=== PATIENT | female | born 1980 | race Caucasian/White ===

== ENCOUNTER 2024-05-07 20:55 | Inpatient (IN) ==
--- NOTE | 2024-05-07 21:16 | Emergency Department Note ---
Impression & Plan Acute right flank pain, Renal colic, Nausea, Hydronephrosis ED Provider Note NAME: WAQAR BENITEZ AGE: 44 SEX: F : 1980 ARRIVES VIA: Walk-In INFORMANT: [Patient] ED PROVIDER(S): [Toribio Cm MD] CHIEF COMPLAINT: Back pain HISTORY OF PRESENT ILLNESS: The patient is a 44-year-old female who has had intermittent right flank pain for 3 weeks that worsened in the last 24 hours. The pain became quite intense this evening to the point where she was nauseated and could not get comfortable. The pain does radiate from the right flank to the right lower quadrant. She has not had a lot of urine out today. No burning with urination. No fever. No cough or congestion. No trauma. Patient believes she likely has a kidney stone as she has felt similar with previous stones. Of note, the patient did try Advil before arrival, this really did not help. PMHx/PSHx/Social Hx: See Below PHYSICAL EXAM: GENERAL: Patient is in mild distress from pain. HEENT: No acute trauma, normocephalic atraumatic, mucous membranes moist, no nasal congestion. Cheeks are flushed. NECK: No stridor, no adenopathy, no meningismus, trachea is midline. LUNGS: Clear to auscultation bilaterally, no wheeze, no rhonchi, breath sounds equal. HEART: Without murmurs gallops or rubs, regular rate and rhythm. ABDOMEN: Soft, nontender, no peritonitis. EXTREMITIES: No cyanosis, full range of motion of all the joints without pain or difficulty. NEUROLOGIC: Oriented x 3, no acute motor or sensory deficits, no focal weakness. SKIN: No jaundice, no diaphoresis. Back: Mild right flank discomfort with percussion. DIFFERENTIAL DIAGNOSIS: Renal colic, biliary colic, hydronephrosis, pyelonephritis, renal failure, appendicitis, among others. EMERGENCY DEPARTMENT PROCEDURES: MEDICAL DECISION MAKING: There is no leukocytosis or concerning anemia. There is a normal platelet count. No renal failure or significant electrolyte abnormality. No concerning liver enzyme elevation. No evidence for pancreatitis. testing is negative. Urinalysis shows some hematuria, no obvious infection. Abdominal and pelvis CT shows a right proximal ureteral stone with hydronephrosis. On exam, the patient was uncomfortable in the area of the right flank. She was not febrile. Patient was given IV morphine, IV Zofran, IV saline. She was given IV Toradol and IV Tylenol. She received oral Flomax. She was given a urine strainer. The patient does feel improved but is still having discomfort. She has, in the past, required urologic intervention even for smaller stones, she is concerned and is afraid to try to pass this stone outpatient. Given her concerns, given her past history and findings today, given her ongoing pain, hospitalization is indicated. I spoke with the patient and case management. The on-call hospitalist was consulted. Prior/Outside records/notes reviewed: None Imaging/x-ray results per my interpretation: Chronic Medical/Social conditions affecting care: None Care/Management discussed with: Case management, the on-call hospitalist. Level of care consideration(s): After review of the information above and other included data: --I believe the patient requires escalation of care to admission DISPOSITION: Admission Past Med/Surg History Problem List (Updated 05/07/24 @ 23:02 by Toribio Cm MD) Hydronephrosis (Acute) Nausea (Acute) Renal colic (Acute) Acute right flank pain (Acute) S/P panniculectomy (~12/2019) Dr. 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 Family History Father Family history of diabetes mellitus Mother Family hx of colon cancer Other No family history of adverse response to anesthesia Social History Smoking Status: Never smoker Second Hand Exposure: No; Do You Dip or Chew Tobacco: No; Hx Alcohol Use: No Hx Substance Use: No Preferred Language: Luxembourgish [employer] Required: No Beliefs That Will Affect Care: None Current Living Situation: Family Feels Safe at Home: Yes Sunscreen Use: Yes Assistive Devices: Contacts and Glasses Allergies Allergies Allergy/AdvReac Type Severity Reaction Status Date / Time bacitracin Allergy Intermediate Hives Verified 05/07/24 21:20 [From Neosporin ([id number])] neomycin Allergy Intermediate Hives Verified 05/07/24 21:20 [From Neosporin ([id number])] polymyxin B Allergy Intermediate Hives Verified 05/07/24 21:20 [From Neosporin ([id number])] Home Meds Home Medications Medication Instructions Recorded Confirmed betamethasone, augmented 0.05 % 1 applic topical BID PRN 05/07/24 05/07/24 topical cream DIRECTED Results & Data (ED) Vital Signs Vital Signs - 24 hr 05/07/24 20:57 05/07/24 21:07 05/07/24 21:36 Temperature 36.8 C Temperature Source Oral Pulse Rate 73 78 63 Pulse Rate from SpO2 Sensor 62 Respiratory Rate 18 18 Respiratory Effort / Characteristics Non-Labored Spontaneous Respiratory Depth Normal Blood Pressure 140/73 Blood Pressure Mean 95 Pulse Oximetry 100 96 Oxygen Delivery Method Room Air Room Air Sepsis Recent Fever Within 48 Hours No Sepsis New/Unexplained Change in Mental Status N/A Sepsis Action Taken by Nursing No Action Required 05/07/24 22:03 05/07/24 22:30 Temperature Temperature Source Pulse Rate 61 53 L Pulse Rate from SpO2 Sensor 61 53 L Respiratory Rate 23 19 Respiratory Effort / Characteristics Respiratory Depth Blood Pressure 111/55 L Blood Pressure Mean 73 Pulse Oximetry 94 96 Oxygen Delivery Method Room Air Room Air Sepsis Recent Fever Within 48 Hours Sepsis New/Unexplained Change in Mental Status Sepsis Action Taken by Longterm Medications Current Medication List: was personally reviewed by me Laboratory Data Attestation: I reviewed the patient's lab results. 05/07/24 Unknown 05/07/24 Unknown Lab Results 05/07/24 05/07/24 Range/Units 22:14 Unknown WBC 9.12 (4.8-10.8) K/ul RBC 4.20 (4.20-5.40) M/uL Hgb 12.6 (12.0-16.0) g/dl Hct 38.1 (37.0-47.0) % MCV 90.7 (80.0-100.0) fL MCH 30.0 (25.0-34.0) pg MCHC 33.1 (32.0-36.0) g/dL RDW Std Deviation 44.8 (36.4-46.3) fL RDW Coeff of Diya 13.5 (11.5-14.5) % Plt Count 343 (130-400) K/uL MPV 10.2 (9.4-12.4) fL Immature Gran % (Auto) 0.3 % Neut % (Auto) 67.7 % Lymph % (Auto) 22.5 % [place] % (Auto) 7.0 % Eos % (Auto) 2.1 % Baso % (Auto) 0.4 % Neut # (Auto) 6.17 (1.40-6.50) K/uL Lymph # (Auto) 2.05 (1.20-3.40) K/uL [place] # (Auto) 0.64 H (0.11-0.59) K/uL Eos # (Auto) 0.19 (0.00-0.50) K/uL Baso # (Auto) 0.04 (0.00-0.20) K/uL Immature Gran # (Auto) 0.03 (0.01-0.20) K/uL Sodium 139 (136-145) mmol/L Potassium 3.7 (3.5-5.1) mmol/L Chloride 111 H (98-107) mmol/L Carbon Dioxide 25 (21-32) mmol/L Anion Gap 3 (3-11) BUN 14 (6-23) mg/dl Creatinine 0.82 (0.6-1.2) mg/dl Est Cr Clr Drug Dosing 91.2 ml/min eGFR 89.28 BUN/Creatinine Ratio 17.1 (10-20) Glucose 113 H (70-99(Fasting)) mg/dl Calcium 8.9 (8.6-10.3) mg/dl Total Bilirubin 0.4 (0.2-1.0) mg/dl AST 12 L (13-39) U/L ALT 13 (7-52) U/L Alkaline Phosphatase 69 (34-104) U/L Total Protein 6.6 (6.0-8.3) gm/dl Albumin 4.1 (3.4-5.0) gm/dl Globulin 2.5 (2.5-4.0) gm/dl Albumin/Globulin Ratio 1.6 (0.9-2) Lipase 56 (11-82) U/L HCG, Qual Negative (Negative) Urine Color Yellow Urine Appearance Clear (Clear) Urine pH 6.5 (4.5-7.5) Ur Specific [place] 1.024 (1.000-1.030) Urine Protein Negative (Negative) Urine Glucose (UA) Negative (Negative) Urine Ketones Trace H (Negative) Urine Blood Trace H (Negative) Urine Nitrite Negative (Negative) Urine Bilirubin Negative (Negative) Urine Urobilinogen Negative (Negative) Ur Leukocyte Esterase 1+ H (Negative) Urine WBC (Auto) 6-10 H (0-5) /hpf Urine RBC (Auto) 3-5 H (0-2) /hpf U Hyaline Cast (Auto) 0-2 (0-2) /lpf U Epithel Cells (Auto) 3-5 H (0-2) /hpf Urine Bacteria (Auto) 1+ H (None Seen) Administered Medications Discontinued Medications Sodium Chloride (Nss) 1,000 mls @ 999 mls/hr IV .Q1H1M ONE Stop: 05/07/24 22:12 Last Infusion: 05/07/24 22:21 Dose: Infused Documented By: Admin: 05/07/24 21:18 Dose: 999 mls/hr Documented By: TAVO Acetaminophen (Ofirmev) 1,000 mg in 100 mls @ 400 mls/hr IV NOW STA Stop: 05/07/24 21:26 Last Infusion: 05/07/24 21:36 Dose: Infused Documented By: Admin: 05/07/24 21:18 Dose: 400 mls/hr Documented By: TAVO Ketorolac Tromethamine (Ketorolac Tromethamine 15 Mg/Ml Vial) 10 mg IV NOW ONE Stop: 05/07/24 21:13 Last Admin: 05/07/24 21:18 Dose: 10 mg Documented By: TAVO Morphine Sulfate (Morphine Sulfate 4 Mg/Ml 1 Ml Carp\\Vial) 4 mg IV NOW STA Stop: 05/07/24 21:13 Last Admin: 05/07/24 21:19 Dose: 4 mg Documented By: TAVO Ondansetron HCl (Ondansetron Inj 2 Mg/Ml 2 Ml Vial) 4 mg IV NOW STA Stop: 05/07/24 21:13 Last Admin: 05/07/24 21:19 Dose: 4 mg Documented By: TAVO Tamsulosin HCl (Tamsulosin Hcl 0.4 Mg Cap) 0.4 mg PO NOW ONE Stop: 05/07/24 22:02 Last Admin: 05/07/24 22:08 Dose: 0.4 mg Documented By: TAVO Imaging Data Radiologist's Impression: Abdomen/Pelvis CT 05/07/24 21:13 Exam(s): CT ABDOMEN + PELVIS Without Contrast EXAM: CT Abdomen and Pelvis Without Intravenous Contrast CLINICAL HISTORY: Reason for exam: right flank pain. TECHNIQUE: Axial computed tomography images of the abdomen and pelvis without intravenous contrast. CTDI is 27.64 mGy and DLP is 1245.66 mGy-cm. Automated exposure control was utilized for the study. A dose lowering technique was utilized adhering to the principles of ALARA. COMPARISON: No relevant prior studies available. FINDINGS: Lung bases: Unremarkable. ABDOMEN: Liver: Unremarkable. Gallbladder and bile ducts: Contracted gallbladder. No calcified stones. No ductal dilation. Pancreas: Unremarkable. No ductal dilation. Spleen: Calcified splenic granulomata. Adrenals: Unremarkable. No mass. Kidneys and ureters: Punctate nonobstructing left kidney stones. No left-sided hydronephrosis. Obstructing 5 mm proximal right ureter stone at the L3 level causing mild upstream hydroureteronephrosis. Stomach and bowel: Unremarkable. No obstruction. No mucosal thickening. PELVIS: Appendix: No evidence of appendicitis. Bladder: Unremarkable. No stones. Reproductive: Unremarkable as visualized. ABDOMEN and PELVIS: Intraperitoneal space: Unremarkable. No free fluid or free air. Bones/joints: No acute fracture. No dislocation. Soft tissues: Unremarkable. Vasculature: Mild atherosclerosis. No abdominal aortic aneurysm. Lymph nodes: Unremarkable. No enlarged lymph nodes. IMPRESSION: Obstructing 5 mm proximal right ureter stone at the L3 level causing mild upstream hydroureteronephrosis. Electronically signed by: Mari Kemp M.D. 05/07/24 22:32 PM Discharge Plan Visit Data Chief Complaint: Back Injury/Pain Stated Complaint: NAUSEA, ABD PAIN ED Provider: Toribio Cm Discharge Problem: Acute right flank pain, Renal colic, Nausea, Hydronephrosis Patient Disposition: Admitted As Inpatient Condition: Fair Forms Stand Alone Forms: [facility] Prescriptions Prescriptions: No Action betamethasone, augmented 0.05 % cream 1 applic TOPICAL BID PRN (Reason: DIRECTED) Referrals Referrals: Dereck rGove [Outside Practitioners] - Discharge Problem: Hydronephrosis Qualifiers: Hydronephrosis type: with renal calculous obstruction Qualified Code(s): N13.2 - Hydronephrosis with renal and ureteral calculous obstruction
[2024-05-07] MEDS: KETOROLAC TROMETHAMINE 15 MG/ML VIAL IV ONE (21:18)
[2024-05-07] MEDS: ACETAMINOPHEN 1,000 MG/100 ML VIAL IV STA (21:18)
[2024-05-07] MEDS: SODIUM CHLORIDE 0.9% 1,000 ML IV ONE (21:18)
[2024-05-07] MEDS: ONDANSETRON INJ 2 MG/ML 2 ML VIAL IV STA (21:19)
[2024-05-07] MEDS: MoRPHine SULFATE 4 MG/ML 1 ML CARP\\VIAL IV STA (21:19)
[2024-05-07 21:42] LABS: Pregnancy Test, Serum Negative (Negative)
[2024-05-07 21:46] LABS: Albumin Globulin Ratio 1.6 (0.9-2); Albumin Level 4.1 gm/dl (3.4-5.0); BUN Creatinine Ratio 17.1 (10-20); Bilirubin,Total 0.4 mg/dl (0.2-1.0); Calcium 8.9 mg/dl (8.6-10.3); Creatinine Clr Calc Pharmacy 91.2 ml/min; Globulin 2.5 gm/dl (2.5-4.0); Potassium 3.7 mmol/L (3.5-5.1); Total Protein 6.6 gm/dl (6.0-8.3)
[2024-05-07] MEDS: TAMSULOSIN HCL 0.4 MG CAP PO ONE (22:08)
[2024-05-07 22:13] LABS: Basophils # (auto) 0.04 K/uL (0.00-0.20); Basophils % (auto) 0.4 %; Eosinophils # (auto) 0.19 K/uL (0.00-0.50); Eosinophils % (auto) 2.1 %; Hematocrit (blood only) 38.1 % (37.0-47.0); Hemoglobin 12.6 g/dl (12.0-16.0); Immature Granulocytes # (auto) 0.03 K/uL (0.01-0.20); Immature Granulocytes % (auto) 0.3 %; Lymphocytes # (auto) 2.05 K/uL (1.20-3.40); Lymphocytes % (auto) 22.5 %; Mean Corpuscular Hgb Conc 33.1 g/dL (32.0-36.0); Mean Corpuscular Volume 90.7 fL (80.0-100.0); Mean Platelet Volume 10.2 fL (9.4-12.4); Monocytes # (auto) 0.64 K/uL (0.11-0.59); Neutrophils # (auto) 6.17 K/uL (1.40-6.50); Neutrophils % (auto) 67.7 %; Platelet Count 343 K/uL (130-400); RDW Coefficient of Variation 13.5 % (11.5-14.5); RDW Standard Deviation 44.8 fL (36.4-46.3); White Blood Count 9.12 K/ul (4.8-10.8)
--- NOTE | 2024-05-07 22:33 | CT Scan Report ---
Exam(s): CT ABDOMEN + PELVIS Without Contrast EXAM: CT Abdomen and Pelvis Without Intravenous Contrast CLINICAL HISTORY: Reason for exam: right flank pain. TECHNIQUE: Axial computed tomography images of the abdomen and pelvis without intravenous contrast. CTDI is 27.64 mGy and DLP is 1245.66 mGy-cm. Automated exposure control was utilized for the study. A dose lowering technique was utilized adhering to the principles of ALARA. COMPARISON: No relevant prior studies available. FINDINGS: Lung bases: Unremarkable. ABDOMEN: Liver: Unremarkable. Gallbladder and bile ducts: Contracted gallbladder. No calcified stones. No ductal dilation. Pancreas: Unremarkable. No ductal dilation. Spleen: Calcified splenic granulomata. Adrenals: Unremarkable. No mass. Kidneys and ureters: Punctate nonobstructing left kidney stones. No left-sided hydronephrosis. Obstructing 5 mm proximal right ureter stone at the L3 level causing mild upstream hydroureteronephrosis. Stomach and bowel: Unremarkable. No obstruction. No mucosal thickening. PELVIS: Appendix: No evidence of appendicitis. Bladder: Unremarkable. No stones. Reproductive: Unremarkable as visualized. ABDOMEN and PELVIS: Intraperitoneal space: Unremarkable. No free fluid or free air. Bones/joints: No acute fracture. No dislocation. Soft tissues: Unremarkable. Vasculature: Mild atherosclerosis. No abdominal aortic aneurysm. Lymph nodes: Unremarkable. No enlarged lymph nodes. IMPRESSION: Obstructing 5 mm proximal right ureter stone at the L3 level causing mild upstream hydroureteronephrosis. Electronically signed by: Mari Kemp M.D. 05/07/24 22:32 PM
[2024-05-07 22:37] LABS: Appearance Urine Clear (Clear); Bacteria Urine Automated 1+ (None Seen); Bilirubin Urine Negative (Negative); Blood Urine Trace (Negative); Cast Urine Automated 0-2 /lpf (0-2); Color Urine Yellow; Glucose Urine UA Negative (Negative); Ketones Urine Trace (Negative); Leukocyte Esterase Urine 1+ (Negative); Nitrite Urine Negative (Negative); Protein Urine Negative (Negative); Specific Gravity Urine 1.024 (1.000-1.030); Urobilinogen Urine Negative (Negative); pH Urine 6.5 (4.5-7.5)
--- NOTE | 2024-05-07 23:09 | History & Physical Report ---
Date of Service May 07, 2024 Assessment & Plan (1) Right nephrolithiasis: (2) Urinary tract infection: (3) Nausea: Plan Patient is a 44-year-old female with no significant past medical history other than kidney stones requiring a left stent placement in the past. She presented to the ED due to flank pain x 3 weeks that has been worsening for the past 24 hours. Along with decreased urine production. She is being admitted for a right proximal ureter obstructing 5 mm stone that appears infectious. #right nephrolithiasis/UTI history of kidney stones requiring left stent placement in the past UA with 1+ leukocyte esterase, 6-10 WBC, 1+ bacteria, 3-5 epithelial cells - possible contaminant with epithelial cells however given obstructed stone, cover with ABX CT showed obstructing 5 mm proximal right ureter stone at L3 level causing mild upstream hydroureteronephrosis renal function stable - trend BMP to monitor nonseptic - no leukocytosis, VSS, afebrile - trend CBC to monitor pain control with IV Tylenol scheduled, Toradol prn, and morphine 2mg/4mg IV for breakthrough pain tamsulosin 0.4 mg PO given in ED, Defer further use as likely operative management and n.p.o. status Zofran as needed for nausea will cover with Rocephin given UA appears infectious and obstructed stone follow urine cultures NPO consult urology mildly hypotensive on admission (111/55) - given 1L NSS in ED, IVF resuscitation overnight with NSS at 80 mL/hour VTE ppx: SCDs, low risk and anticipate operative management Diet: n.p.o. Dispo: MedSurg Admission and Anticipated Discharge Date Admission Date: 05/07/24 History of Present Illness Chief Complaint: back pain Primary Care Provider: TAWANNA Kline Patient is a 44-year-old female with no significant past medical history other than kidney stones requiring a left stent placement in the past. She presented to the ED due to flank pain x 3 weeks that has been worsening for the past 24 hours. Along with decreased urine production. She is being admitted for a right proximal ureter obstructing 5 mm stone that appears infectious. Patient seen at bedside. She stated her pain is currently 5/10 after receiving Toradol, Tylenol, and morphine 4 Mg IV in the ED. She stated her pain is in her right flank and radiates to her right abdomen and down her right leg. She also endorses decrease in urinary frequency for the past 24 hours, denies any gross hematuria. She also has nausea that is well-controlled with Zofran in the ED. She had numerous kidney stones in the past and required stent placement of the left kidney due to a 2 and 3 mm stone several years ago. She denies any fevers, chills, chest pain, shortness of breath, vomiting, diarrhea. She does not use nicotine products or drink alcohol. Her only home medications consist of vitamin D and vitamin B. She wishes to be full code. she denies any allergies to antibiotics. Allergies Allergy/AdvReac Type Severity Reaction Status Date / Time bacitracin Allergy Intermediate Hives Verified 05/07/24 21:20 [From Neosporin ([id number])] neomycin Allergy Intermediate Hives Verified 05/07/24 21:20 [From Neosporin ([id number])] polymyxin B Allergy Intermediate Hives Verified 05/07/24 21:20 [From Neosporin ([id number])] Home Medications Medication Instructions Recorded Confirmed Type betamethasone, augmented 0.05 % 1 applic topical BID PRN 05/07/24 05/07/24 History topical cream DIRECTED Past Med/Surg History Problem List (Updated 05/07/24 @ 23:42 by Lorin El PA-C) Urinary tract infection Right nephrolithiasis Hydronephrosis (Acute) Nausea (Acute) Renal colic (Acute) Acute right flank pain (Acute) S/P panniculectomy (~12/2019) Dr. 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 Family History Father Family history of diabetes mellitus Mother Family hx of colon cancer Other No family history of adverse response to anesthesia Social History Smoking Status: Never smoker Second Hand Exposure: No; Do You Dip or Chew Tobacco: No; Hx Alcohol Use: No Hx Substance Use: No Preferred Language: Telugu Communication Ability: Effective Nurse Practitioner Hospitalist Required: No Beliefs That Will Affect Care: None Current Living Situation: Spouse and Family Other Information That Helps Us Care for You: No Feels Safe at Home: Yes Safety Concerns: Feels Safe At This Time Sunscreen Use: Yes Assistive Devices: Contacts Review of Systems Review of Systems: see HPI Physical Exam Physical Exam: The patient is awake, alert and oriented 3, well developed and well nourished, normocephalic and atraumatic, in no acute distress. Non-toxic appearing. HEENT- EOMI, mucous membranes moist. Hearing grossly intact. Heart-normal S1 and S2. No murmurs, rubs or gallops. Lungs-clear bilaterally, no respiratory distress, no accessory muscle use. Abdomen-normal bowel sounds and soft. No ascites noted. Non-tender. Extremities- no clubbing, cyanosis, or edema. Rheumatologic-normal range of motion. Psychiatric-normal affect. Results & Data Results & Data Vital Signs (Past 12 Hours) Vital Signs Temp Pulse Resp BP Pulse Ox O2 Del Method 05/07/24 22:30 53 L 19 111/55 L 96 Room Air 05/07/24 22:03 61 23 94 Room Air 05/07/24 21:36 63 18 96 Room Air 05/07/24 21:07 78 05/07/24 20:57 36.8 C 73 18 140/73 100 Room Air Laboratory Results reviewed CBC, CMP, hCG, UA Diagnostic Findings reviewed AP CT Medications Administered ED1L NSS bolus, Zofran 4 Mg IV, Toradol 15 Mg IV, morphine 4 Mg IV, Tylenol 1G IV, Flomax 0.4 Mg p.o. AdmissionRocephin 2G IV, NSS at 80 mL/hour ECG Additional Comments: Ordered Code Status & VTE Plan Code Status full code VTE Prophylaxis Plan VTE Prophylaxis will be ordered: Yes Supervising Physician Co-Signing Physician Notes Attending addendum: I have physically seen this patient, have supervised the ZIA's activities, and agree with the H&P unless as otherwise noted. Assessment and Plan: The patient is a 44-year-old female with past medical history significant for kidney stones requiring left stent placement in the past. She presents to the emergency department due to flank pain of 3 weeks duration, worsening over the past 24 hours, along with decreased urine production. She underwent CT scan abdomen pelvis which shows a 5 mm proximal right ureteral stone with mild hydroureteronephrosis due to obstruction. #5 mm proximal right ureteral stone/mild right hydroureteronephrosis- N.p.o. Follow urine culture and sensitivity Ceftriaxone 2 g IV daily Tamsulosin 0.4 mg p.o. daily Zofran 4 mg IV every 6 hours as needed Acetaminophen 1 g IV every 8 hours as needed for mild pain or fever Toradol 10 mg IV every 6 hours as needed for moderate pain Morphine sulfate 2 to 4 mg IV every 3 hours as needed breakthrough pain Status post 1 L normal saline bolus in ED NSS at 80 mL/h x 1 additional liter overnight Consult urology PG Care Time/CCT Total # of Minutes Spent Total Time Spent with Patient: Total time spent is greater than 50% in coordination of care (as documented) at patient's floor/unit and/or counseling patient: Coding Level of Care Code 23649 INT INP/OBS CARE 375MIN Diagnoses Right nephrolithiasis N20.0 Urinary tract infection N39.0 Nausea R11.0
[2024-05-07] MEDS: LACTATED RINGER'S 1,000 ML IV SCH (23:34)
[2024-05-08] MEDS: cefTRIAXone SODIUM 2,000 MG/50 ML BAG IV STA (00:08)
[2024-05-08] MEDS: ONDANSETRON INJ 2 MG/ML 2 ML VIAL IV PRN ×2 (01:02→13:34)
[2024-05-08] MEDS: MoRPHine SULFATE 2 MG/ML CARP IV PRN (01:02)
[2024-05-08] MEDS: SODIUM CHLORIDE 0.9% 1,000 ML IV SCH (01:12)
[2024-05-08] MEDS: KETOROLAC TROMETHAMINE 15 MG/ML VIAL IV PRN (03:45)
[2024-05-08] MEDS: ACETAMINOPHEN 1,000 MG/100 ML VIAL IV SCH (05:03)
[2024-05-08 06:57] LABS: Basophils # (auto) 0.04 K/uL (0.00-0.20); Basophils % (auto) 0.7 %; Eosinophils % (auto) 3.5 %; Hematocrit (blood only) 33.2 % (37.0-47.0); Hemoglobin 10.7 g/dl (12.0-16.0); Immature Granulocytes # (auto) 0.01 K/uL (0.01-0.20); Immature Granulocytes % (auto) 0.2 %; Lymphocytes # (auto) 2.19 K/uL (1.20-3.40); Mean Corpuscular Hemoglobin 30.1 pg (25.0-34.0); Mean Corpuscular Hgb Conc 32.2 g/dL (32.0-36.0); Mean Corpuscular Volume 93.5 fL (80.0-100.0); Mean Platelet Volume 10.1 fL (9.4-12.4); Monocytes # (auto) 0.41 K/uL (0.11-0.59); Monocytes % (auto) 7.1 %; Neutrophils # (auto) 2.91 K/uL (1.40-6.50); Neutrophils % (auto) 50.5 %; Platelet Count 254 K/uL (130-400); RDW Coefficient of Variation 13.5 % (11.5-14.5); RDW Standard Deviation 46.3 fL (36.4-46.3); Red Blood Count 3.55 M/uL (4.20-5.40); White Blood Count 5.76 K/ul (4.8-10.8)
[2024-05-08] MEDS: MoRPHine SULFATE 4 MG/ML 1 ML CARP\\VIAL IV PRN (07:18)
[2024-05-08 07:24] LABS: BUN Creatinine Ratio 17.3 (10-20); Calcium 8.1 mg/dl (8.6-10.3); Creatinine Clr Calc Pharmacy 91.9 ml/min; Potassium 3.9 mmol/L (3.5-5.1)
[2024-05-08] MEDS: TAMSULOSIN HCL 0.4 MG CAP PO SCH (08:43)
--- NOTE | 2024-05-08 09:04 | Anesthesiology Consultation ---
Date of Service May 08, 2024 Assessment & Plan Chart Review Chart Review: Acceptable Risk for Surgery and Patient NOT seen in Pre Admission Testing Consults Requested none ASA [id number] Proposed Anesthesia Anesthesia Type: MAC History Surgery Operation Date: 05/08/24 12:00 Proposed Procedures p Cystoscopy - Dereck Hernandez MD s Ureteral Stent Insertion/Removal - Right - Dereck Hernandez MD Height/Weight Height: 5 ft 2 in Weight: 92.5 kg Allergies Allergy/AdvReac Type Severity Reaction Status Date / Time bacitracin Allergy Intermediate Hives Verified 05/07/24 21:20 [From Neosporin ([id number])] neomycin Allergy Intermediate Hives Verified 05/07/24 21:20 [From Neosporin ([id number])] polymyxin B Allergy Intermediate Hives Verified 05/07/24 21:20 [From Neosporin ([id number])] Medications Home Medications Medication Instructions Recorded Confirmed Last Taken betamethasone, augmented 0.05 % 1 applic topical BID PRN 05/07/24 05/07/24 Unknown topical cream DIRECTED Active Medications Generic Name Dose Route Start Last Admin Trade Name Freq PRN Reason Stop Dose Admin Sodium Chloride 1,000 mls @ 80 mls/hr 05/07/24 23:45 05/08/24 01:12 Nss IV 05/08/24 23:44 80 mls/hr .[id number] EVITA Administration Acetaminophen 1,000 mg in 100 mls @ 400 mls/hr 05/08/24 05:00 05/08/24 05:27 Ofirmev IV 05/11/24 04:59 Infused Q8H EVITA Infusion Ketorolac Tromethamine 10 mg 05/08/24 00:34 05/08/24 03:45 Ketorolac Tromethamine 15 Mg/Ml Vial IV 05/13/24 00:33 10 mg Q6H PRN Administration Pain Morphine Sulfate 2 mg 05/08/24 00:34 05/08/24 01:02 Morphine Sulfate 2 Mg/Ml Carp IV 05/22/24 00:33 2 mg Q6H PRN Administration Moderate Pain (Scale 4, 5, 6) Morphine Sulfate 4 mg 05/08/24 00:34 05/08/24 07:18 Morphine Sulfate 4 Mg/Ml 1 Ml Carp\\Vial IV 05/22/24 00:33 4 mg Q6H PRN Administration Severe Pain (Scale 7, 8, 9,10) Ondansetron HCl 4 mg 05/08/24 00:34 05/08/24 01:02 Ondansetron Inj 2 Mg/Ml 2 Ml Vial IV 06/07/24 00:33 4 mg Q6H PRN Administration Nausea And Vomiting Tamsulosin HCl 0.4 mg 05/08/24 09:00 05/08/24 08:43 Tamsulosin Hcl 0.4 Mg Cap PO 06/07/24 08:59 0.4 mg QAM EVITA Administration Past Medical History Medical History Scoliosis "MILD" Hx gestational diabetes obese hydronephrosis anemia ASCVD Ao mild Exercise / Class Metabolic Activity II 4-5 Yardwork/Stairs/Walk up hill Past Family History Family History Father Family history of diabetes mellitus Mother Family hx of colon cancer Other No family history of adverse response to anesthesia Past Surgical History Surgical History History of colonoscopy [place] teeth removed 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 Past Anesthesia History No Hx of Anesthesia Complications and No Family Hx of Anesthesia Complications History of PONV No Hx of PONV and No Hx of Motion Sickness Social History Smoking Status: Never smoker Do You Dip or Chew Tobacco: No Hx Alcohol Use: No Hx Substance Use: No substance use type: does not use Physical Exam Vital Signs Last Vital Signs Temp 36.5 C 05/08/24 07:40 Pulse 57 L 05/08/24 07:40 Resp 20 05/08/24 07:40 BP 97/60 L 05/08/24 07:40 Pulse Ox 96 05/08/24 07:40 O2 Del Method Room Air 05/08/24 07:40 Testing Laboratory Results 05/08/24 06:29 05/08/24 06:29 Urine Color Yellow 05/07/24 22:14 Urine Appearance Clear (Clear) 05/07/24 22:14 Urine pH 6.5 (4.5-7.5) 05/07/24 22:14 Ur Specific [place] 1.024 (1.000-1.030) 05/07/24 22:14 Urine Protein Negative (Negative) 05/07/24 22:14 Urine Glucose (UA) Negative (Negative) 05/07/24 22:14 Urine Ketones Trace (Negative) H 05/07/24 22:14 Urine Nitrite Negative (Negative) 05/07/24 22:14 Ur Leukocyte Esterase 1+ (Negative) H 05/07/24 22:14 Urine WBC (Auto) 6-10 /hpf (0-5) H 05/07/24 22:14 Urine RBC (Auto) 3-5 /hpf (0-2) H 05/07/24 22:14 U Hyaline Cast (Auto) 0-2 /lpf (0-2) 05/07/24 22:14 U Epithel Cells (Auto) 3-5 /hpf (0-2) H 05/07/24 22:14 Urine Bacteria (Auto) 1+ (None Seen) H 05/07/24 22:14 Electrocardiogram Date: 05/08/24 Findings: + SB @ (@ 51;lowvoltage QRS)
--- NOTE | 2024-05-08 09:06 | Urology Consultation ---
Date of Consultation May 08, 2024 Assessment & Plan (1) Right nephrolithiasis: (2) Urinary tract infection: Plan We reviewed her right ureteral stone as well as the possible superimposed infection. In this setting I would recommend cystoscopy, right retrograde pyelogram and right ureteral stent placement to ensure maximal drainage of the urinary tract. We discussed risks and benefits of this procedure including risk of bleeding, infection, inability to place stent, need for additional procedures. She expressed understanding and would like to proceed. History of Present Illness Reason for Consultation: Right ureteral stone, possible UTI Attending Physician: Miguel Angel Rose DO History of Present Illness This is a 44-year-old female with history of nephrolithiasis. She has had 1 in 2 mm stones in the past but has not been able to pass these spontaneously and has required surgical intervention. She presented to the emergency department on 05/07/2024 with right-sided flank pain. Workup in the ED demonstrated normal WBC (9.12). Creatinine was 0.82 and glucose was 113. Urinalysis demonstrated negative nitrites, 1+ leukocyte esterase, 1+ bacteria although epithelial cells were present on sample as well. She had a CT scan of the abdomen pelvis. I independently reviewed these images from 05/07/2024. Both kidneys are in normal position. There is hydronephrosis on the right side extending down to a 5 mm stone in the mid right ureter. There are punctate, nonobstructing stones in the left kidney. Bladder appears grossly normal. Urology was consulted regarding the obstructing stone and possible infection. At the bedside she denies any fevers or chills, although does report some bladder pressure and possible mild burning. She is still having right-sided flank pain. Allergies Allergy/AdvReac Type Severity Reaction Status Date / Time bacitracin Allergy Intermediate Hives Verified 05/07/24 21:20 [From Neosporin ([id number])] neomycin Allergy Intermediate Hives Verified 05/07/24 21:20 [From Neosporin ([id number])] polymyxin B Allergy Intermediate Hives Verified 05/07/24 21:20 [From Neosporin ([id number])] Home Medications Medication Instructions Recorded Confirmed Type betamethasone, augmented 0.05 % 1 applic topical BID PRN 05/07/24 05/07/24 History topical cream DIRECTED Patient History Medical History Scoliosis "MILD" Hx gestational diabetes Surgical History (Updated 01/10/20 @ 11:20 by Karly Abrams PA-C) History of colonoscopy [place] teeth removed 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 Family History Father Family history of diabetes mellitus Mother Family hx of colon cancer Other No family history of adverse response to anesthesia Social History Smoking Status: Never smoker Second Hand Exposure: No; Do You Dip or Chew Tobacco: No; Hx Alcohol Use: No Hx Substance Use: No Preferred Language: Portuguese Communication Ability: Effective Equipment Lead Required: No Beliefs That Will Affect Care: None Current Living Situation: Spouse and Family Feels Safe at Home: Yes Sunscreen Use: Yes Assistive Devices: Contacts Review of Systems Review of Systems: 10 point review of systems negative exce pt for otherwise indicated. Physical Exam Constitutional: well developed and well nourished; no acute distress Eyes: + anicteric sclerae; pupils not irregula r Respiratory: normal respiratory effort; no respiratory distress, does not use accessory muscles and no cough Cardiovascular: well perfused Gastrointestinal (Abdomen): Inspection/Auscultation: abdomen normal to inspection; abdomen not distended Musculoskeletal: Extremities: extremities normal to inspection Skin: normal turgor; no rashes and no lesions Neurologic: moves all extremities and awake Psychiatric: Orientation: alert and oriented x 3 Results & Data Vital Signs (Past 12 Hours) Vital Signs Temp Pulse Pulse Pulse Pulse Resp BP 05/08/24 07:40 36.5 C 57 L 20 05/08/24 00:38 36.8 C 58 L 16 05/08/24 00:10 65 16 05/08/24 00:00 104/61 05/07/24 23:30 63 19 05/07/24 23:06 56 L 19 05/07/24 23:01 108/91 05/07/24 23:01 108/91 05/07/24 22:30 53 L 19 111/55 L 05/07/24 22:03 61 23 05/07/24 21:36 63 18 05/07/24 21:07 78 BP BP Pulse Ox O2 Del Method 05/08/24 07:40 97/60 L 96 Room Air 05/08/24 00:38 111/68 99 Room Air 05/08/24 00:10 96 Room Air 05/08/24 00:00 05/07/24 23:30 97 05/07/24 23:06 96 05/07/24 23:01 05/07/24 23:01 05/07/24 22:30 96 Room Air 05/07/24 22:03 94 Room Air 05/07/24 21:36 96 Room Air 05/07/24 21:07 PG Care Time/CCT Total # of Minutes Spent Total Time Spent with Patient: Total time spent is greater than 50% in coordination of care (as documented) at patient's floor/unit and/or counseling patient: Coding Level of Care Code 52022 OP VST NEW MOD 45 MIN Diagnoses Right nephrolithiasis N20.0 Urinary tract infection N39.0
[2024-05-08 09:54] LABS: Pregnancy Test, Serum Negative (Negative)
[2024-05-08] MEDS ORDERED: PROPOFOL IV EMULSION 10 MG/ML 20 ML VIAL IV ONE (11:15)
[2024-05-08] MEDS ORDERED: ONDANSETRON INJ 2 MG/ML 2 ML VIAL ONE (11:15)
[2024-05-08] MEDS ORDERED: LIDOCAINE 2% 2 ML VIAL/AMP(20MG/ML) INFIL ONE (11:15)
[2024-05-08] MEDS ORDERED: fentaNYL citrate PF 100 MCG/2 ML VIAL ONE (11:15)
[2024-05-08] MEDS ORDERED: MIDAZOLAM HCL 1 MG/ML 2ML VIAL ONE (11:15)
--- NOTE | 2024-05-08 12:12 | Electrocardiogram Report ---
Test Reason : Blood Pressure : */* mmHG Vent. Rate : 51 BPM Atrial Rate : 51 BPM P-R Int : 146 ms QRS Dur : 76 ms QT Int : 432 ms P-R-T Axes : 47 62 42 degrees QTcB Int : 398 ms Sinus bradycardia Low voltage QRS Borderline ECG When compared with ECG of 04-Feb-1993 16:14, (unconfirmed) No significant change was found Confirmed by Eliecer Escudero ([id number]) on 05/08/2024 12:12:35 PM Referred By: REFERRED SELF Confirmed By: Eliecer Escudero
[2024-05-08] MEDS ORDERED: PROMETHAZINE HCL 6.25 MG in SODIUM CHLORIDE 0.9% 50 ML IV PRN (12:52)
[2024-05-08] MEDS ORDERED: NALOXONE HCL 0.4 MG/1 ML VIAL/CARP IV PRN (12:52)
[2024-05-08] MEDS ORDERED: FLUMAZENIL 0.1 MG/1 ML 10 ML VIAL IV PRN (12:52)
[2024-05-08] MEDS ORDERED: ePHEDrine sulfate 50 MG/ML AMP IV PRN (12:52)
[2024-05-08] MEDS ORDERED: LABETALOL HCL IV 5 MG/ML 20ML IV PRN (12:52)
[2024-05-08] MEDS ORDERED: ATROPINE SULFATE 0.1 MG/ML 10ML SYR IV PRN (12:52)
[2024-05-08] MEDS ORDERED: DEXAMETHASONE SOD INJ 4 MG/ML VIAL ONE (12:59)
[2024-05-08] MEDS: DIATRIZOATE MEGLUMINE 30% 100ML VIAL INSTIL ONE (13:10)
[2024-05-08] MEDS ORDERED: KETOROLAC 30 MG/ML VIAL ONE (13:21)
--- NOTE | 2024-05-08 13:26 | Operative Report ---
PG Post Operative Report Pre & Post Diagnosis Operation Date: 05/08/24 12:00 Pre-Op Diagnosis: (1) Right nephrolithiasis (2) Urinary tract infection Post-Op Diagnosis: (1) Right nephrolithiasis (2) Urinary tract infection I identified the patient and participated in the time-out.: Yes Procedure Operation Date: 05/08/24 12:00 Actual Procedures Cystoscopy, right retrograde pyelogram, right ureteral stent insertion Surgeon Dereck Hernandez MD [employer] None Estimated Blood Loss 0 Findings Consistent with Post-Op Diagnosis Specimens None Drains 6 [place] x 24 cm double-J ureteral stent in the right ureter Anesthesia Type MAC Complications none Disposition Accompanied Patient To Recovery: Yes Disposition: Recovery Room Indications This is a 44-year-old female with history of nephrolithiasis. She was recently found to have a right sided ureteral stone and concern for possible infection. She is brought to the OR for right ureteral stent placement Description of Procedure The patient was identified in the holding area and informed consent was confirmed. She was marked on the right side, then was taken to the operating room where anesthesia was initiated. She was placed in the dorsal lithotomy position with all pressure points appropriately padded. She was prepped and draped in the usual sterile fashion and a preoperative timeout was performed. A well-lubricated cystoscope was inserted per urethra and panendoscopy was performed. The urethra was normal in appearance. The bladder was of normal size with ureteral orifices in orthotopic position. The right ureteral orifice was identified and cannulated with a 5 [place]ian occlusion tip catheter. A retrograde pyelogram was performed demonstrating the distal ureter was normal in course and caliber. There was a point where it was difficult to bypass with contrast suggesting the stone. There was hydronephrosis proximal to this. A sensor wire was advanced to the level of the kidney under fluoroscopic guidance. Over the wire, a 6 [place] x 24 centimeter double-J ureteral stent was advanced. When the wire was removed, the proximal curl was visualized in the kidney with x-ray, and the distal curl visualized in the bladder with the cystoscope. At this point the bladder was drained and all instrumentation was removed. The patient was then awakened from anesthesia and was brought to the PACU in stable condition. I attest to the content of the Intraoperative Record and any orders documented therein. Any exceptions are noted below.
[2024-05-08] MEDS: fentaNYL citrate PF 100 MCG/2 ML VIAL IV PRN (13:34)
--- NOTE | 2024-05-08 14:05 | Anesthesiology Progress Note ---
Date of Service May 08, 2024 Anesthesia Post Procedure Vital Signs Vital Signs: Temp Pulse Pulse Pulse Pulse Resp BP 05/08/24 13:55 36.4 C L 56 L 12 05/08/24 13:45 55 L 14 05/08/24 13:35 61 18 05/08/24 13:25 36.0 C L 53 L 12 05/08/24 07:40 36.5 C 57 L 20 05/08/24 00:38 36.8 C 58 L 16 05/08/24 00:10 65 16 05/08/24 00:00 104/61 05/07/24 23:30 63 19 05/07/24 23:06 56 L 19 05/07/24 23:01 108/91 05/07/24 23:01 108/91 05/07/24 22:30 53 L 19 111/55 L 05/07/24 22:03 61 23 05/07/24 21:36 63 18 05/07/24 21:07 78 05/07/24 20:57 36.8 C 73 18 140/73 BP BP Pulse Ox O2 Del Method 05/08/24 13:55 94/49 L 94 Room Air 05/08/24 13:45 96/58 L 95 Room Air 05/08/24 13:35 100/55 L 97 Room Air 05/08/24 13:25 88/57 L 96 Room Air 05/08/24 07:40 97/60 L 96 Room Air 05/08/24 00:38 111/68 99 Room Air 05/08/24 00:10 96 Room Air 05/08/24 00:00 05/07/24 23:30 97 05/07/24 23:06 96 05/07/24 23:01 05/07/24 23:01 05/07/24 22:30 96 Room Air 05/07/24 22:03 94 Room Air 05/07/24 21:36 96 Room Air 05/07/24 21:07 05/07/24 20:57 100 Room Air Pain Intensity Right Flank: Pain Intensity: 4 Transfer of Care Handoff Completed per policy Notes Mental Status: alert / awake / arousable Patient Amnestic to Procedure: Yes Nausea / Vomiting: adequately controlled Pain: adequately controlled Airway Patency, RR, SpO2: stable & adequate BP & HR: stable & adequate Hydration State: stable & adequate Anesthetic Complications: no major complications apparent
[2024-05-08] MEDS: oxyCODONE HCL IR 5 MG TAB (IMMEDIATE RELEASE) PO PRN (15:08)
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
[2024-05-08] MEDS: METOCLOPRAMIDE HCL INJ 5 MG/ML 2 ML VIAL IV PRN (15:41)
[2024-05-08] MEDS: ACETAMINOPHEN 500 MG TAB PO PRN (16:12)
[2024-05-08] MEDS: cefTRIAXone SODIUM 2,000 MG/50 ML BAG IV SCH (20:22)
[2024-05-09 07:27] LABS: BUN Creatinine Ratio 16.3 (10-20); Calcium 8.5 mg/dl (8.6-10.3)
[2024-05-09 07:41] VITALS: PULSE 66; RESP 18
--- NOTE | 2024-05-09 08:36 | Fluoroscopy Report ---
FL retrograde includes kub CLINICAL HISTORY: RT STENT COMPARISON STUDY: None FLUOROSCOPY TIME: 12 seconds FLUOROSCOPY IMAGES: 2 EXPOSURE DOSE: 4 mGy FINDINGS: Fluoroscopy was provided for right ureteral stent. IMPRESSION: Intraoperative fluoroscopy. ACT 112: Negative or not required by law. Electronically signed by: Rush Sun M.D. 05/09/2024 8:35 AM
--- NOTE | 2024-05-09 09:39 | Urology Progress Note ---
Date of Service May 09, 2024 Assessment & Plan (1) Right nephrolithiasis: (2) Hydronephrosis: (3) Urinary tract infection: Plan: 44-year-old female admitted for right renal colic secondary to right ureteral calculus and concern for UTI. - Pt POD#1 s/p cystoscopy and right ureteral stent placement - Doing well, progressing as expected - Afebrile, lab work reviewed - creatinine 0.80, WBC 5.76 - Urine culture showed Lactobacillus and Gardnerella vaginalis - Tolerating right ureteral stent with minimal bother - Okay to d/c from perspective when medically stable - Recommend d/c with Tamsulosin, prn Pyridium, prn Oxybutynin, and prn pain medication for stent management - Expected clinical course reviewed, all questions answered - Will arrange outpatient follow-up with our service for definitive stone treatment Admission and Anticipated Discharge Date Admission Date: May 07, 2024 Subjective Patient seen and examined at bedside this morning. She is awake and sitting up in bed. Reports mild flank discomfort. Voiding spontaneously. Denies nausea, vomiting, fever or chills. Review of Systems Constitutional: as per Subjective / HPI Genitourinary: as per Subjective / HPI Physical Exam Constitutional: well developed and well nourished; no acute distress Respiratory: normal respiratory effort; no respiratory distress and no labored breathing Gastrointestinal (Abdomen): Inspection/Auscultation: abdomen normal to inspection Musculoskeletal: Head/Neck/Chest: normocephalic Neurologic: moves all extremities and awake Psychiatric: Orientation: alert and oriented x 3 Results & Data Vital Signs (Past 12 Hours) Vital Signs Temp Pulse Resp BP Pulse Ox O2 Del Method 05/09/24 09:33 95/57 L 05/09/24 07:40 37.1 C 66 18 94/55 L 97 Room Air 05/09/24 03:05 36.6 C 71 14 111/66 95 Room Air 05/08/24 23:18 37.0 C 67 14 112/70 94 Room Air 05/08/24 23:16 Room Air PG Care Time/CCT Total # of Minutes Spent Total Time Spent with Patient: Total time spent is greater than 50% in coordination of care (as documented) at patient's floor/unit and/or counseling patient: Coding Level of Care Code 12086 SUB INP/OBS CARE 03/19MIN Diagnoses Right nephrolithiasis N20.0 Hydronephrosis N13.2 Hydronephrosis type: with renal calculous obstruction Urinary tract infection N39.0 (2) Hydronephrosis Hydronephrosis type: with renal calculous obstruction Qualified Code(s): N13.2 - Hydronephrosis with renal and ureteral calculous obstruction
--- NOTE | 2024-05-09 11:16 | Discharge Summary ---
Discharge Summary Date of Service May 09, 2024 Principal Dx & Hospital Course #1 = Principal Diagnosis (1) Right nephrolithiasis: (2) Urinary tract infection: (3) Nausea: Plan #right nephrolithiasis/UTI Patient is a 44-year-old female with no significant past medical history other than kidney stones requiring a left stent placement in the past. She presented to the ED due to flank pain x 3 weeks that has been worsening for the past 24 hours with decreased urine production. CT A/P showed 5mm proximal right ureteral stone causing mild hydroureteronephrosis. Urology consulted - s/p stent placement with Dr. Hernandez 05/08. Stayed overnight for further pain control. UC with normal vaginal bacteria, antibiotics not continued. Discharge with Flomax, prn oxycodone/Pyridium/Zofran/oxybutynin. Dispo: discharge to home today Notes For Next Care Provider Medication Changes From Visit Flomax, prn oxycodone/Pyridium/Zofran/oxybutynin. Admission HPI Per Admitting Provider Patient is a 44-year-old female with no significant past medical history other than kidney stones requiring a left stent placement in the past. She presented to the ED due to flank pain x 3 weeks that has been worsening for the past 24 hours. Along with decreased urine production. She is being admitted for a right proximal ureter obstructing 5 mm stone that appears infectious. Patient seen at bedside. She stated her pain is currently 5/10 after receiving Toradol, Tylenol, and morphine 4 Mg IV in the ED. She stated her pain is in her right flank and radiates to her right abdomen and down her right leg. She also endorses decrease in urinary frequency for the past 24 hours, denies any gross hematuria. She also has nausea that is well-controlled with Zofran in the ED. She had numerous kidney stones in the past and required stent placement of the left kidney due to a 2 and 3 mm stone several years ago. She denies any fevers, chills, chest pain, shortness of breath, vomiting, diarrhea. She does not use nicotine products or drink alcohol. Her only home medications consist of vitamin D and vitamin B. She wishes to be full code. she denies any allergies to antibiotics. Discharge Exam General: NAD, VS as above, appears much more comfortable than day prior Resp: normal respiratory effort, lungs clear to auscultation CV: RRR, no murmur, Abd: normal bowel sounds, non tender, Back: No CVA tenderness Extremities: Moves all extremities, no edema Neuro: A&O x3, Skin: intact, no lesions noted Discharge Plan Discharge Items Patient Disposition: Home - Self-Care Reason For Visit: INFECTED NEPHROLITHASIS Discharge Diagnosis: Kidney stone Condition on Discharge: Fair Activity: Resume your previous activity Driving/Machine Use: do not drive while taking narcotics Weightbearing: Full weightbearing Non-emergency contact: Primary Care Provider and Urologist Call non-emergency contact if: you have any medication questions, your symptoms worsen, your pain is not controlled, your pain is worsening and your temperature is above 101 Follow-up/Referrals: Dereck Hernandez MD [Physician] - (follow up for stone treatment ) Mitra Solano CRNP [Primary Care Provider] - Diet: Regular Addtl Attending Provider Instructions: Ms. Sprague You were hospitalized after having back pain and difficulty urinating found to be from kidney stones. You were seen by urology and taken to the OR to have a stent placed on 05/[address] Hernandez. You received antibiotics on admission, but your urine culture did not have any bacteria and antibiotics do not need to be continued. You will need to follow up with urology for stent removal and stone treatment. Medication Changes/Recommendations: * Continue flomax daily while stent in place - this is to help with easier passage of urine * Pyridium as needed for pain with urination - this can cause your urine/feces to be discolored/orange * Pain control - can take tylenol and iburpofen (follow directions on the bottle), oxycodone for pain unrelieved with those medications * Zofran - as needed for nausea control * Oxybutyin as needed for spasms from stent It is normal to still have discomfort in the flank area while the stent is in place, this pain may be worse with movement. Blood tinged urine can also be common. If you are having persistent dark bloody urine or thick bloody urine for >8 hours please contact your urologist. It is important that you are staying hydrated while the stent is in place. The urology office should be contacting you to schedule and appointment. If you do not hear from them by Thursday please contact them at [phone] Please contact the urologist if you have any uncontrolled pain, fevers > 100F, or inability to urinate. Thank you for allowing us to participate in your care Misty Freire PA-C Pending Studies at Discharge: No Stand-Alone Forms: My [facility] Medications and DC Order Prescriptions: New tamsulosin 0.4 mg Capsule 0.4 mg PO QAM Qty: 14 0RF oxycodone 5 mg Tablet 5 mg PO Q6H PRN (Reason: pain) Qty: 12 0RF ondansetron HCl 4 mg tablet 4 mg PO Q6H PRN (Reason: nausea and vomiting) Qty: 12 0RF oxybutynin chloride 5 mg tablet 5 mg PO BID PRN (Reason: bladder spasms) Qty: 10 0RF phenazopyridine [Pyridium] 100 mg tablet 100 mg PO TID PRN (Reason: dysuria) Qty: 6 0RF Continued betamethasone, augmented 0.05 % cream 1 applic TOPICAL BID PRN (Reason: DIRECTED) Discharge Orders: Discharge Order (Routine); Ordered 05/09/24 Ordered By: Misty Beaver/Other Patient Handouts: Having a Ureteral Stent Admission Data Admit Date/Time: 05/07/24 23:35 Attending Provider: Russell Kidd Admit Provider: Dave Chilel Primary Care Provider: Mitra Solano Other Providers: Dave Chilel; Dereck Hernandez Hospital Stay Data Consultations 05/07/24 22:55 ED Decision to Admit Stat 05/08/24 00:34 Consult Urology Routine Procedures Performed Operation Date: 05/08/24 12:00 Actual Procedures p Cystoscopy,(Not Applicable) - Dereck Hernandez MD s Retrograde Pyelogram, Ureteral Stent Insertion - Right(Right) - Dereck Hernandez MD Diagnostic Imagining Performed Abdomen/Pelvis CT 05/07/24 21:13 Exam(s): CT ABDOMEN + PELVIS Without Contrast EXAM: CT Abdomen and Pelvis Without Intravenous Contrast CLINICAL HISTORY: Reason for exam: right flank pain. TECHNIQUE: Axial computed tomography images of the abdomen and pelvis without intravenous contrast. CTDI is 27.64 mGy and DLP is 1245.66 mGy-cm. Automated exposure control was utilized for the study. A dose lowering technique was utilized adhering to the principles of ALARA. COMPARISON: No relevant prior studies available. FINDINGS: Lung bases: Unremarkable. ABDOMEN: Liver: Unremarkable. Gallbladder and bile ducts: Contracted gallbladder. No calcified stones. No ductal dilation. Pancreas: Unremarkable. No ductal dilation. Spleen: Calcified splenic granulomata. Adrenals: Unremarkable. No mass. Kidneys and ureters: Punctate nonobstructing left kidney stones. No left-sided hydronephrosis. Obstructing 5 mm proximal right ureter stone at the L3 level causing mild upstream hydroureteronephrosis. Stomach and bowel: Unremarkable. No obstruction. No mucosal thickening. PELVIS: Appendix: No evidence of appendicitis. Bladder: Unremarkable. No stones. Reproductive: Unremarkable as visualized. ABDOMEN and PELVIS: Intraperitoneal space: Unremarkable. No free fluid or free air. Bones/joints: No acute fracture. No dislocation. Soft tissues: Unremarkable. Vasculature: Mild atherosclerosis. No abdominal aortic aneurysm. Lymph nodes: Unremarkable. No enlarged lymph nodes. IMPRESSION: Obstructing 5 mm proximal right ureter stone at the L3 level causing mild upstream hydroureteronephrosis. Electronically signed by: Mari Kemp M.D. 05/07/24 22:32 PM Retrograde Pyelogram 05/08/24 00:00 FL retrograde includes kub CLINICAL HISTORY: RT STENT COMPARISON STUDY: None FLUOROSCOPY TIME: 12 seconds FLUOROSCOPY IMAGES: 2 EXPOSURE DOSE: 4 mGy FINDINGS: Fluoroscopy was provided for right ureteral stent. IMPRESSION: Intraoperative fluoroscopy. ACT 112: Negative or not required by law. Electronically signed by: Rush Sun M.D. 05/09/2024 8:35 AM Pending Results Patient Have Any Pending Studies at Discharge: No Discharge Instructions Given to Patient (Per Discharging Provider) Ms. Sprague You were hospitalized after having back pain and difficulty urinating found to be from kidney stones. You were seen by urology and taken to the OR to have a stent placed on 05/[address] Hernandez. You received antibiotics on admission, but your urine culture did not have any bacteria and antibiotics do not need to be continued. You will need to follow up with urology for stent removal and stone treatment. Medication Changes/Recommendations: * Continue flomax daily while stent in place - this is to help with easier passage of urine * Pyridium as needed for pain with urination - this can cause your urine/feces to be discolored/orange * Pain control - can take tylenol and iburpofen (follow directions on the bottle), oxycodone for pain unrelieved with those medications * Zofran - as needed for nausea control * Oxybutyin as needed for spasms from stent It is normal to still have discomfort in the flank area while the stent is in place, this pain may be worse with movement. Blood tinged urine can also be common. If you are having persistent dark bloody urine or thick bloody urine for >8 hours please contact your urologist. It is important that you are staying hydrated while the stent is in place. The urology office should be contacting you to schedule and appointment. If you do not hear from them by Thursday please contact them at [phone] Please contact the urologist if you have any uncontrolled pain, fevers > 100F, or inability to urinate. Thank you for allowing us to participate in your care Misty Freire PA-C Total Time Total Time Spent Total Time Spent (In Minutes): Time spent day of discharge 36 minutes including direct patient care, medication reconciliation, documentation, review of labs and images, and coordination of care. Coding Level of Care Code 80644 INP/OBS DISCH >30 MIN Diagnoses Right nephrolithiasis N20.0 Urinary tract infection N39.0 Nausea R11.0
[2024-05-09 11:20] VITALS: BP 118/73; TEMP 98.2; O2SAT 96
== END 2024-05-09 12:23 | disposition home or self-care (01) | DRG 661 ==
LOC: ED 20:55 → 3E 23:35 → SUATTDRO 23:35 → 3E 05-08 00:20